=== PATIENT | male | born 1955 | race Caucasian/White ===

== ENCOUNTER → 2024-09-10 15:09 | Outpatient (CLI) | payer MEDICARE, OTHER, SELFPAY ==
--- NOTE | 2024-09-10 15:11 | DI.NM.S_ITS ---
PROCEDURE: NM EXERCISE TREADMILL NON NUC COMPARISON: None. INDICATIONS: dyspnea on exertion FINDINGS: The patient exercised for 6 minutes and 7 seconds reaching 110% of maximum predicted heart rate. 7.0METs, JORGITO +15%. Hypertensive response to exercise (resting BP 120/100mHg, max BP 208/110mmHg). No angina, no diagnostic chest pain, and no definite ectopy noted during exercise or recovery. IMPRESSION: Low risk, normal treadmill ECG only stress test from inducible ischemia standpoint. Mildly reduced exercise tolerance (7.0METs, JORGITO +15%). Hypertensive response to exercise (resting BP 120/100mHg, max BP 208/110mmHg). Dictated by: Noe Dickson MD on 09/11/2024 at 14:39 Approved by: Noe Dickson MD on 09/11/2024 at 14:42
== END ==
PROVIDERS: PCP Student in an Organized Health Care Education/Training Program; Referring Provider Student in an Organized Health Care Education/Training Program; Visit Provider Student in an Organized Health Care Education/Training Program
DX: R06.09 Other forms of dyspnea (principal)
CPT/HCPCS: 93017